=== PATIENT | male | born 1965 | race Caucasian/White ===

== ENCOUNTER 2023-06-12 18:07 | Outpatient (CLI) | payer SELFPAY ==
[2023-06-12 15:58] LABS: Prothrombin Time 82.4 sec (9.3-11.0)
[2023-06-12 16:22] LABS: INR 8.3 (0.9-1.1)
== END 2023-06-12 18:08 | disposition home or self-care (01) ==
LOC: LBO 18:13
DX: I48.91 Unspecified atrial fibrillation (principal); Z79.01 Long term (current) use of anticoagulants
CPT/HCPCS: 36415; 85610